=== PATIENT | female | born 1955 | race Caucasian/White ===

== ENCOUNTER 2022-11-01 10:55 | Outpatient (CLI) | payer OTHER, SELFPAY ==
--- NOTE | 2022-11-01 12:17 | ECG_ITS ---
Measurements Intervals [place] Rate: 69 P: 23 IL: 160 QRS: -6 QRSD: 103 T: 21 QT: 381 QTc: 410 Interpretive Statements SINUS RHYTHM LOW QRS VOLTAGE IN PRECORDIAL LEADS NONSPECIFIC T-WAVE ABNORMALITY BORDERLINE ECG NO PREVIOUS ECG AVAILABLE FOR COMPARISON Electronically Signed On 11-02-2022 16:23:03 CDT by Oliver Trejo M.D.
[2022-11-01 12:49] LABS: Basophils Absolute Auto 0.1 K/mm3 (0.0-0.1); Basophils Percent Auto 0.9 % (0.2-1.2); Eosinophils Absolute Auto 0.3 K/mm3 (0-0.3); Eosinophils Percent Auto 3.8 % (0-4.4); Hematocrit 39.4 % (37.0-47.0); Hemoglobin 12.7 g/dL (12.0-15.0); Immature Granulocyte Absolute 0.03 K/mm3 (0.00-0.031); Immature Granulocyte Percent A 0.3 % (0-0.5); Lymphocytes Absolute Auto 2.14 K/mm3 (0.9-3.2); Lymphocytes Percent Auto 24.7 % (18.3-44.2); Mean Corpuscular HGB Conc 32.2 g/dl (32-36); Mean Corpuscular Hemoglobin 29.1 pg (26-34); Mean Corpuscular Volume 90.2 fl (80-100); Mean Platelet Volume 9.8 fl (7.4-10.4); Monocytes Absolute Auto 0.8 K/mm3 (0.1-0.6); Monocytes Percent Auto 9.4 % (2.6-8.5); Neutrophils Absolute Auto 5.3 K/mm3 (1.3-6.7); Neutrophils Percent Auto 60.9 % (45.5-73.1); Platelet Count Result 278 k/mm3 (150-375); Red Blood Count 4.37 M/mm3 (4.2-5.4); Red Cell Distribution Width 13.2 % (11.5-14.5); White Blood Count 8.7 K/mm3 (4.5-10.0)
[2022-11-01 12:54] LABS: Alanine Aminotransferase 28 U/L (6-35); Albumin Level 4.3 g/dL (3.5-5.1); Alkaline Phosphatase 65 U/L (38-126); Anion Gap 5 mmol/L (8-16); Aspartate Amino Transferase 26 U/L (14-36); Bilirubin,Total 0.5 mg/dL (0.2-1.3); Blood Urea Nitrogen 17 mg/dL (7-17); Calcium 9.3 mg/dL (8.4-10.2); Carbon Dioxide 31 mmol/L (22-30); Chloride 103 mmol/L (98-107); Estimated Glomerular Filt Rate > 60; Glucose 98 mg/dL (65-110); Potassium 3.9 mmol/L (3.4-5.0); Prothrombin Time 12.8 Seconds (11.1-14.7); Sodium 139 mmol/L (137-145)
== END 2022-11-01 10:56 | disposition home or self-care (01) ==
LOC: ANHSURGERY 11:02
PROVIDERS: PCP Physician Assistant Medical; Visit Provider Urology
DX: Z01.812 Encounter for preprocedural laboratory examination (principal); Z01.810 Encounter for preprocedural cardiovascular examination; N81.4 Uterovaginal prolapse, unspecified; R94.31 Abnormal electrocardiogram [ECG] [EKG]
CPT/HCPCS: 36415; 80053; 85025; 85610; 85730; 86850; 86900; 86901; 93005

== ENCOUNTER 2022-11-12 00:55 | Day surgery (SDC) | payer OTHER, SELFPAY ==
[2022-11-01 11:12] VITALS: BMI 31.2
--- NOTE | 2022-11-01 12:00 | PC.NURSE ---
Report to the Outpatient Waiting Room, entrance under the green pavilion located off [facility], at time __0600 on date __11/12/22 . Planned Procedure Time: _0730 . Time changes happen often and if your time is changed the preop area will call you the afternoon before. - You and your visitor will be asked to self-screen and do not enter if you have any COVID symptoms. - A mask is optional within the hospital at this time. Patients may have clear liquids (water, carbonated beverages, clear teas, apple juice) until 3 hours prior to surgery with a maximum of 20 ounces. - No food from midnight until time of surgery - Infants may have breast milk until 4 hours before surgery, infant formula 6 hours prior to surgery. - Children will be allowed to drink immediately following surgery. If applicable, please bring a bottle or sippy cup to assist with drinking. Juice, water, soda, and popsicles are readily available. For infants on formula, please bring formula the day of surgery. Pacifiers are allowed. Take the following medications with a SIP of water the morning of surgery: ____NONE DO NOT STOP ANY OF YOUR OTHER PRESCRIPTION MEDICATIONS PRIOR TO SURGERY ?EXCEPT THE FOLLOWING Medications to discontinue per physician ____ALL VITAMINS/SUPPLEMENTS 3 DAYS PRE OP.LAST DOSE Please no make-up, nail marshallese, hairspray, perfume, deodorant, or body powder the day of surgery. No jewelry (including any body piercings) or valuables the day of surgery, leave them at home. Please take a shower or bath the night before, or the morning of, surgery with an antibacterial soap. Wear comfortable, loose fitting clothing. Children are encouraged to wear pajamas. - Jewelry must be removed prior to entering the operating room. Rings and piercings that are not removed may be cut off. - The hospital will not accept responsibility for valuables. - Please leave all valuables, including medications, at home the day of surgery. If you are going home after surgery, a licensed class a regional drivers must drive you home. - NO public transportation without another adult if you receive anesthesia. - We recommend that an adult stay with you for 24 hours following discharge. - We also recommend that you do not drive, make important decision, drink alcoholic beverages, or take any drugs that were not prescribed by your health care provider for at least 24 hours after your discharge time. For Pediatric surgeries, we recommend two adults accompany the child home. Follow any additional instructions given to you from your surgeon. If you or anyone in your household have experienced Covid symptoms in the past week, please notify your surgeon or the nurse liaison at the phone number below for possible testing. VERBAL AND WRITTEN instructions given to __PATIENT and asked if any additional questions and then verbalized understanding. Patient advised to call surgeon office or pre surgery nurse liaison [phone] if any additional questions.
[2022-11-01 12:17] VITALS: BP 130/78; PULSE 84; RESP 18; TEMP 36.8
--- NOTE | 2022-11-09 10:34 | P.HP_ITS ---
H&P: HPI History of Present Illness Date/Time: 11/09/22 10:34 Chief Complaint: Pelvic organ prolapse and stress incontinence Narrative: 67-year-old with pelvic organ prolapse and stress incontinence who desires s urgical correction Review of Systems Review of Systems: All systems reviewed & are unremarkable except as noted in HPI and below PMFSH Social History Social History Smoking status: Never smoker Living arrangements: with family Spiritual care concerns: No Meds Home Medications and Allergies Home Medications Medication Instructions Recorded Confirmed Type ascorbic acid (vitamin C) 1,000 mg 1 g PO DAILY 11/01/22 11/01/22 History tablet (Vitamin C) cholecalciferol (vitamin D3) 50 50 mcg PO DAILY 11/01/22 11/01/22 History mcg (2,000 unit) tablet cranberry fruit 450 mg tablet 450 mg PO DAILY 11/01/22 11/01/22 History (cranberry) cyanocobalamin (vitamin B-12) 1,000 mcg PO DAILY 11/01/22 11/01/22 History 1,000 mcg capsule glucosamine sulf dipot 1 cap PO DAILY 11/01/22 11/01/22 History chlr,msm,chond 550 mg-C 30 mg-cruz 1 mg capsule (Glucosamine Chondroitin) hyalur ac-chond sul-colg II-AA 40 1 cap PO DAILY 11/01/22 11/01/22 History mg-80 mg-400 mg capsule (Hyaluronic Acid(with chondroitin-collagenII)) krill 1 cap PO DAILY 11/01/22 11/01/22 History qsi-pj2-wxm-ltv-tp3-bud-astax 1,500 mg-165 mg-67.5 mg capsule (Krill Oil ([place] 3 and 6)) loratadine 10 mg tablet 10 mg PO DAILY PRN Allergy Symptoms 11/01/22 11/01/22 History methylsulfonylmethane 1,000 mg 3,000 mg PO DAILY 11/01/22 11/01/22 History tablet (MSM) resveratrol 250 mg capsule 500 mg PO DAILY 11/01/22 11/01/22 History turmeric 400 mg capsule 40 mg PO DAILY 11/01/22 11/01/22 History zinc 50 mg capsule 50 mg PO DAILY 04/13/23 04/13/23 History Allergies Allergy/AdvReac Type Severity Reaction Status Date / Time fluticasone AdvReac Intermediate Jittery Verified 11/01/22 11:15 salmeterol AdvReac Intermediate Jittery Verified 11/01/22 11:15 codeine AdvReac Nausea and Verified 11/01/22 11:16 Vomiting hydrocodone [From Vicodin] AdvReac Nausea and Verified 11/01/22 11:17 Vomiting Exam Narrative: no acute distress normal breathing alert orient x3 anterior wall at +4 with loss of apical support urethral mobility Assessment and Plan Assessment and plan (1) Uterine prolapse: Code(s): N81.4 - Uterovaginal prolapse, unspecified Status: Acute (2) MARII (stress urinary incontinence, female): Code(s): N39.3 - Stress incontinence (female) (male) Status: Acute Plan robotic colpopexy and urethral sling. Understands risks of bleeding, infection, damage surrounding organs, damage to urinary tract, recurrence of prolapse, mesh related complications, vaginal mesh extrusion, urinary tract mesh erosion, obstructive voiding requiring secondary procedure, hip and leg pain, dyspareunia, recurrence of stress incontinence or prolapse. She agrees to proceed
[2022-11-12] VITALS (12 sets, daily range): BP systolic 100–154; BP diastolic 58–74; PULSE 64–97; RESP 12–16; TEMP 36.1–37; O2SAT 93–100; BMI 30.6
[2022-11-12] MEDS: LACTATED RINGERS 1,000 ML 30 ML IV CONT ×2 (06:30→11:00)
--- NOTE | 2022-11-12 06:52 | WPDANESEPPF ---
Anes - Initial Pre Proc Eval Procedure: Operation Date: 11/12/22 07:30 Proposed Procedures p Robotic Sacrocolpopexy, - Kishan Montoya MD s Robotic Assisted Supracervical Hysterectomy with Bilateral Salpingo Oophorectomy - Petty Bird DO Date/Time: 11/12/22 06:52 Surgeon: Kishan Montoya MD Pre Op Diagnosis: complete uterovag prolapse Patient Data Age: 67 Gender: F Height: 1.52 m Weight: 71.1 kg Last Vital Signs Temp 36.7 C 11/12/22 06:00 Pulse 64 11/12/22 06:00 Resp 16 11/12/22 06:00 BP 154/74 H 11/12/22 06:00 Pulse Ox 100 11/12/22 06:00 O2 Del Method Room Air 11/12/22 06:00 Allergies Allergy/AdvReac Type Severity Reaction Status Date / Time salmeterol AdvReac Intermediate Jittery Verified 11/12/22 06:15 codeine AdvReac Nausea and Verified 11/12/22 06:15 Vomiting hydrocodone [From Vicodin] AdvReac Nausea and Verified 11/12/22 06:15 Vomiting Home Medications Medication Instructions Recorded Confirmed Type ascorbic acid (vitamin C) 1,000 mg 1 g PO DAILY 11/01/22 11/12/22 History tablet (Vitamin C) cholecalciferol (vitamin D3) 50 50 mcg PO DAILY 11/01/22 11/12/22 History mcg (2,000 unit) tablet cranberry fruit 450 mg tablet 450 mg PO DAILY 11/01/22 11/12/22 History (cranberry) cyanocobalamin (vitamin B-12) 1,000 mcg PO DAILY 11/01/22 11/12/22 History 1,000 mcg capsule glucosamine sulf dipot 1 cap PO DAILY 11/01/22 11/12/22 History chlr,msm,chond 550 mg-C 30 mg-cruz 1 mg capsule (Glucosamine Chondroitin) hyalur ac-chond sul-colg II-AA 40 1 cap PO DAILY 11/01/22 11/12/22 History mg-80 mg-400 mg capsule (Hyaluronic Acid(with chondroitin-collagenII)) krill 1 cap PO DAILY 11/01/22 11/12/22 History zab-xs2-opt-qeh-dh1-gxy-astax 1,500 mg-165 mg-67.5 mg capsule (Krill Oil ([place] 3 and 6)) loratadine 10 mg tablet 10 mg PO DAILY PRN Allergy Symptoms 11/01/22 11/01/22 History methylsulfonylmethane 1,000 mg 3,000 mg PO DAILY 11/01/22 11/01/22 History tablet (MSM) resveratrol 250 mg capsule 500 mg PO DAILY 11/01/22 11/01/22 History turmeric 400 mg capsule 40 mg PO DAILY 11/01/22 11/12/22 History zinc 50 mg capsule 50 mg PO DAILY 11/01/22 11/12/22 History Patient hx anesthesia problems: post op nausea/vomiting Family hx anesthesia problems: none Results Review: All pre-operative results and documents have been reviewed as part of the pre-operative evaluation. [facility] Social History Social History Smoking status: Never smoker Living arrangements: with family Spiritual care concerns: No Anes - Eval Final PreProcedure Day of Procedure 11/12/22 06:52 Patient weight: overweight Heart: regular rate and rhythm Lungs: clear to auscultation Airway: Mallampati scale class II Neurological: alert and oriented Last oral intake: >/= 8 hours ASA classification: II Emergent: no Anesthesia type and monitoring: general ETT and standard monitoring Results Review: All pre-operative results and documents have been reviewed as part of the pre-operative evaluation. Informed Consent: The patient's anesthetic plan and its attendant risks and benefits were discussed with the patient/family/POA. Questions were solicited and answers provided to the satisfaction of the patient/family/POA.
[2022-11-12] MEDS: SCOPOLAMINE 1.5 MG PATCH TRANSDERM (06:57)
--- NOTE | 2022-11-12 07:14 | WPDHPUPDATE1 ---
History and Physical Update Update Date/Time: 11/12/22 07:14 History and Physical has been reviewed, including an updated exam of the patient. There are NO changes in the patient's condition. Risks, benefits, and alternatives have been discussed and questions answered. Patient agrees to proceed with procedure.
--- NOTE | 2022-11-12 07:17 | WPDHPUPDATE1 ---
History and Physical Update Update Date/Time: 11/12/22 07:17 History and Physical has been reviewed, including an updated exam of the patient. There are NO changes in the patient's condition. Risks, benefits, and alternatives have been discussed and questions answered. Patient agrees to proceed with procedure.
--- NOTE | 2022-11-12 07:17 | PM.IMHP ---
H&P: HPI History of Present Illness Date/Time: 11/12/22 07:17 Chief Complaint: I'm here for my hysterectomy Narrative: Paula presents for RTLH/BSO with me and robotic sacral colpopexy with Dr. Montoya for persistent pelvic pain and pressure due to uterovaginal prolapse. Review of Systems Review of Systems: All systems reviewed & are unremarkable except as noted in HPI and below PMFSH Social History Social History Smoking status: Never smoker Living arrangements: with family Spiritual care concerns: No Meds Home Medications and Allergies Home Medications Medication Instructions Recorded Confirmed Type ascorbic acid (vitamin C) 1,000 mg 1 g PO DAILY 11/01/22 11/12/22 History tablet (Vitamin C) cholecalciferol (vitamin D3) 50 50 mcg PO DAILY 11/01/22 11/12/22 History mcg (2,000 unit) tablet cranberry fruit 450 mg tablet 450 mg PO DAILY 11/01/22 11/12/22 History (cranberry) cyanocobalamin (vitamin B-12) 1,000 mcg PO DAILY 11/01/22 11/12/22 History 1,000 mcg capsule glucosamine sulf dipot 1 cap PO DAILY 11/01/22 11/12/22 History chlr,msm,chond 550 mg-C 30 mg-cruz 1 mg capsule (Glucosamine Chondroitin) hyalur ac-chond sul-colg II-AA 40 1 cap PO DAILY 11/01/22 11/12/22 History mg-80 mg-400 mg capsule (Hyaluronic Acid(with chondroitin-collagenII)) krill 1 cap PO DAILY 11/01/22 11/12/22 History epr-ex4-xgq-agz-ai8-sfl-astax 1,500 mg-165 mg-67.5 mg capsule (Krill Oil ([place] 3 and 6)) loratadine 10 mg tablet 10 mg PO DAILY PRN Allergy Symptoms 11/01/22 11/01/22 History methylsulfonylmethane 1,000 mg 3,000 mg PO DAILY 11/01/22 11/01/22 History tablet (MSM) resveratrol 250 mg capsule 500 mg PO DAILY 11/01/22 11/01/22 History turmeric 400 mg capsule 40 mg PO DAILY 11/01/22 11/12/22 History zinc 50 mg capsule 50 mg PO DAILY 11/01/22 11/12/22 History Allergies Allergy/AdvReac Type Severity Reaction Status Date / Time salmeterol AdvReac Intermediate Jittery Verified 11/12/22 06:15 codeine AdvReac Nausea and Verified 11/12/22 06:15 Vomiting hydrocodone [From Vicodin] AdvReac Nausea and Verified 11/12/22 06:15 Vomiting Vital Signs Vital Signs - 24 hr 11/12/22 06:00 Temperature 36.7 C Pulse Rate 64 Respiratory Rate 16 Blood Pressure 154/74 H Pulse Oximetry 100 Oxygen Delivery Room Air Exam Const: General: comfortable and no acute distress Eyes: General: appearance normal, both eyes and all related structures Resp: Effort & Inspection: normal respiratory effort Auscultation: clear to auscultation bilaterally Cardio: Rate: regular rate Rhythm: regular rhythm GI: GI Palp: Yes Soft to palpation Auscultation: normal bowel sounds Assessment and Plan Assessment and plan (1) Uterine prolapse: Code(s): N81.4 - Uterovaginal prolapse, unspecified Status: Acute (2) Pelvic pressure in female: Code(s): R10.2 - Pelvic and perineal pain Status: Acute Plan Robotic assisted total laparoscopic hysterectomy, bilateral salpingo-oophorectomy
[2022-11-12] MEDS: ceFAZolin 2 GM/D5W 50 ML 2 GM/50 ML BAG IVPB (07:30)
[2022-11-12] MEDS: metroNIDAZOLE 500 MG/ISO 100ML 500 MG/100 ML BAG 100 MG IVPB ×3 (07:40→22:05)
[2022-11-12] MEDS: BUPIVACAINE/EPINEPHRINE 0.25% 10 ML VIAL 20 ML INFILTRATE (08:06)
--- NOTE | 2022-11-12 08:50 | P.OP_ITS ---
Procedure Note - Detailed Date of Procedure 11/12/22 Pre-op Diagnosis complete uterovag prolapse Pelvic pressure Post-op Diagnosis Same Procedure Performed Robotic assisted supracervical hysterectomy, bilateral salpingo-oophorectomy. Surgeon Petty Bird DO [employer] Helper Srini Anesthesia General Indications Pelvic pressure Complete uterovaginal prolapse Findings Complete uterovaginal prolapse Small cervix Internally, small uterus. Normal tubes and ovaries. Filmy pelvic adhesions. Description of Procedure Patient was taken to the operating room where she was placed under general a nesthesia. She was prepped and draped in the normal sterile fashion and dorsal lithotomy position. A Avila catheter was placed. For description of insertion of the trocars, please see Dr. Montoya's procedure note. I was seated at the console and inspected the pelvis. Findings were as noted above. There were thin but profuse adhesions around the pelvis suggestive of either history of diverticulitis or possibly endometriosis. The use included adhesions from the sigmoid to the left sidewall the sigmoid to the left adnexa and the adnexa down to the posterior cul-de-sac. These were easily taken down with careful blunt and sharp dissection. Starting on the right side the ureter was identified and the peritoneum above the IP ligament was opened carefully. This defect was brought in and the IP ligament was skeletonized. It was cauterized and transected this dissection was carried up to the peritoneum across and through the round ligament. The 2 leaves of the broad ligament were opened and the uterine vessels were identified. A partial bladder flap was created the uterine vessels were cauterized and transected. The dissection was completed in an identical fashion on the left-hand side, 1st identifying that the ureter was well out of the way. Once the left uterine vessels were cauterized and transected, the area of cervical dissection was identified. The bladder flap was completed and I presented to the bedside to place a [place] on the cervix. Once the cervix was better identified, I returned to the console and was able to perform transect the uterus off of the cervix. The uterus, tubes and ovaries were left in the body. They will be retrieved via bag by Dr. Montoya. All surgical pedicles were reinspected and found to be hemostatic. Please see Dr. Montoya's procedure note for the remainder of the surgery. When I left the OR the patient was in stable condition all instrument sponges were correct. Estimated Blood Loss 10 Packing No Pathology Yes Complications No immediate complications Condition Stable Disposition PACU
--- NOTE | 2022-11-12 11:36 | W.PM.PROC2 ---
Procedure Note - Detailed Date of Procedure 11/12/22 Pre-op Diagnosis complete uterovag prolapse Stress incontinence Post-op Diagnosis Same Procedure Performed Robotic assisted laparoscopic sacral colpopexy Urethral sling Cystoscopy Surgeon Kishan Montoya MD Anesthesia General Indications This is a woman with uterine prolapse as well as stress incontinence. She desires surgical correction. She is here for the above. She understands risks of bleeding, infection, diskitis, damage to surrounding organs, bowel injury, bowel obstruction, mesh related complications including exposure and extrusion, postoperative voiding dysfunction including incontinence and retention, need for ancillary procedures, dyspareunia, recurrence of prolapse, and other perioperative intraoperative postoperative complications. She agrees to proceed. Findings Large stage IV uterine prolapse. Colpopexy performed. [place] basically attached to sacral promontory Description of Procedure She was correctly identified. Informed consent obtained. She from the operating room. She was given general anesthesia. She was given appropriate perioperative antibiotics. She was placed a low lithotomy position. Pressure points were padded. A time-out performed. Of note she had significant uterine prolapse measuring 6-7 cm beyond the introitus. I marked out the skin 3 fingerbreadths cephalad to the umbilicus. I anesthetized the skin. I incised the skin. I dissected down to the fascia. I grasped the fascia with Cris clamps. I entered the fascia sharply in a Moss type technique. I placed sutures for later fascial closure. I placed a midline trocar. I examined the abdomen. There is no sign of any injury. Under direct vision I placed 2 additional trocars in the right upper quadrant and 2 additional trocars the left upper quadrant. She was placed in steep Trendelenburg. The robot was docked. Her foundry technician completed their portion of the procedure. Please see that operative report for details. I then sat at the console. The Sizer in the vagina created plane on the anterior and posterior vaginal wall. Again she had a very large prolapse that could be stretched all the way to the sacral promontory. I took great care not to injure the vagina, bladder, or rectum. I introduced the mesh into the abdomen. I sewed the anterior leaflet of mesh on the anterior vaginal wall. I sewed the posterior leaflet of mesh on the posterior vaginal wall. This was done with several sutures of 2 0 [place]. I reflected the colon laterally. There was some adhesions in this area likely due to previous diverticulitis. i opened the posterior peritoneum over the sacral promontory. I carried this into the cul-de-sac. I freed up the edges for later retroperitonealization. I located the anterior longitudinal ligament the sacrum. She had 2 visible prominences. The more distal prominence did not have a good strong the ligament. The more proximal prominence was somewhat obscured by vasculature. One was i cleaned off all fatty tissues. I then tensioned my mesh appropriately. I chose the more proximal of prominence as the more distal 1 had very atretic ligamentous attachments. I did a vaginal exam the bedside. I assured prolapse reduction without undue tension. The apex was basically attached to the sacral promontory with very little intervening mesh. I then sewed the proximal leaflet of mesh onto the anterior longitudinal ligament of the sacrum with several sutures of 2 0 [place]. I then used a 2 0 Monocryl to completely and meticulously retroperitonealized all mesh. I allowed the colon to go back to its normal anatomic location. There is no sign of any impingement. The specimen was then removed. All ports removed. Fascia was tied down. Skin was closed with Monocryl and surgical glue. She was repositioned and prepped for urethral sling. I marked out the inner thigh incisions. I anesthetized the
[2022-11-12] MEDS: fentaNYL CITRATE INJ (*CRX) 100 MCG/2 ML VIAL 25 MCG IV PUSH ×3 (12:05→12:35)
--- NOTE | 2022-11-12 12:14 | SUR.PHASEI ---
1213: Simple mask removed.
--- NOTE | 2022-11-12 12:40 | PC.NURSE ---
This patient, Paula Dickerson, was received from PACU on 11/12/22 at 1240. Patient/family oriented to unit policies and routines.
[2022-11-12] MEDS: KCL 20 MEQ/D5/0.45% SOD CHL 1,000 ML 100 ML IV CONT ×2 (12:54→22:16)
[2022-11-12] MEDS: KETOROLAC 15 MG/ML VIAL (*BKC) IV PUSH (13:03)
[2022-11-12] MEDS: ceFAZolin 1 GM/NS 50 ML 1 GM/50 ML BAG IVPB (16:38)
[2022-11-12] MEDS: traMADol HCL (*CRX) 50 MG TABLET PO (19:22)
[2022-11-13] MEDS: ceFAZolin 1 GM/NS 50 ML 1 GM/50 ML BAG IVPB ×2 (00:39→08:49)
[2022-11-13 04:18] VITALS: BP 125/65; PULSE 87; RESP 16; TEMP 37.2
[2022-11-13] MEDS: metroNIDAZOLE 500 MG/ISO 100ML 500 MG/100 ML BAG 100 MG IVPB (06:00)
[2022-11-13] MEDS: ACETAMINOPHEN 325 MG TABLET 650 MG PO (07:06)
[2022-11-13 08:00] VITALS: BP 139/67; PULSE 83; RESP 16; TEMP 37.2; O2SAT 96
[2022-11-13] MEDS: DOCUSATE SODIUM 100 MG CAPSULE PO (08:50)
[2022-11-13] MEDS: ENOXAPARIN 30 MG/0.3 ML SYRINGE SUB-Q (08:51)
[2022-11-13] MEDS: KETOROLAC 15 MG/ML VIAL (*BKC) IV PUSH (08:54)
--- NOTE | 2022-11-13 09:36 | WPDANESPN ---
Anes - Prog Note Post-Op Date/Time: 11/13/22 09:36 Vital Signs: Last Vital Signs Temp 37.2 C 11/13/22 08:00 Pulse 83 11/13/22 08:00 Resp 16 11/13/22 08:00 BP 139/67 11/13/22 08:00 Pulse Ox 96 11/13/22 08:00 O2 Del Method Room Air 11/12/22 16:40 O2 Flow Rate 2 11/12/22 13:00 Pain Score (VAS): 0 I/O: Intake & Output 11/12/22 11/13/22 11/13/22 23:59 07:59 15:59 Intake Total 1450 550 Output Total 850 1400 300 Balance 600 -850 -300 Patient Feedback: Patient satisfied with anesthetic care.
--- NOTE | 2022-11-13 14:23 | WPDUROPN2 ---
Progress Note: A&P Assessment and Plan (1) Pelvic pressure in female: Code(s): R10.2 - Pelvic and perineal pain Status: Acute Assessment and Plan: ok to discharge home. (2) MARII (stress urinary incontinence, female): Code(s): N39.3 - Stress incontinence (female) (male) Status: Acute (3) Uterine prolapse: Code(s): N81.4 - Uterovaginal prolapse, unspecified Status: Acute Subjective Subjective Date/Time Seen: 11/13/22 14:23 POD #[address] Montoya Robotic assisted laparoscopic sacral colpopexy Urethral sling Cystoscopy The patient is doing very well and has minimal pain. She is tolerating diet and activity well. She has urinated without the wills. Post Op day: 1 Review of Systems Cardiovascular: Cardiovascular: Reports no additional cardiovascular complaints and Denies chest pain Respiratory: Respiratory: Reports no additional respiratory complaints Gastrointestinal: Gastrointestinal: Denies abdominal pain, Denies nausea and Denies vomiting Genitourinary: Genitourinary: Denies flank pain, Denies urinary incontinence, Denies urinary hesitancy and Denies urinary urgency Exam Const: General: cooperative Cardio: Rate: regular rate : General: Yes no CVA tenderness Extrem: Right lower extremity: no edema Left lower extremity: no edema Objective Data Vital Signs Vital Signs: Vital Signs - 24 hr 11/12/22 19:15 11/12/22 16:40 11/12/22 16:40 Temperature 98.6 F 98.0 F Pulse Rate 97 84 Respiratory Rate 16 14 Blood Pressure 131/71 133/73 Pulse Oximetry 100 99 Oxygen Delivery Room Air 11/13/22 04:18 11/13/22 08:00 11/13/22 07:00 Temperature 99.0 F 98.9 F Pulse Rate 87 83 Respiratory Rate 16 16 Blood Pressure 125/65 139/67 Pulse Oximetry 96 Oxygen Delivery Room Air Intake/Output Intake/Output: Intake & Output 11/10/22 11/11/22 11/12/22 11/13/22 23:59 23:59 23:59 23:59 Intake Total 2350 700 Output Total 1050 1700 Balance 1300 -1000
== END 2022-11-13 10:48 | disposition home or self-care (01) ==
LOC: ANHSURGERY 07:01 → ANHOB2 12:40
PROVIDERS: Obstetrics & Gynecology Gynecologic Oncology; PCP Physician Assistant Medical; Visit Provider Urology
PROC: (CPT 57425; principal; 2022-11-12 07:30)
PROC: 0UT94ZZ Resection of Uterus, Percutaneous Endoscopic Approach (ICD-10-PCS; CPT 57425; 2022-11-12 07:30)
DX: N81.3 Complete uterovaginal prolapse (principal); N39.3 Stress incontinence (female) (male); R10.2 Pelvic and perineal pain; N80.9 Endometriosis, unspecified
CPT/HCPCS: 57288; 57425; 58542; S2900 ×2; 36415; 80053; 85025; 85610; 85730; 86850; 86900; 86901; 88307; 93005; 99199; A9270; C1771; C1781; C9290; J0690; J1100; J1170; J1650; J1885; J2250; J2370; J2405; J2704; J2710; J3010; J3480; J7030; J7120